=== PATIENT | male | born 1960 | race Two or more races ===

== ENCOUNTER 2020-04-09 13:28 | Emergency (ER) | payer OTHER ==
[~2020-04-09] VITALS: Ht 175.3 cm; Wt 81.8 kg
[2020-04-09] MEDS ORDERED: LOSA25TA21 PO (13:42)
[2020-04-09] MEDS ORDERED: ASPI-1111 PO (13:42)
[2020-04-09 13:43] VITALS: BP 133/86
[2020-04-09 15:54] LABS: COVID AG,FIA SOURCE NASOPHARYNGEAL
== END 2020-04-09 15:11 | disposition home or self-care (01) ==
LOC: EMS 14:01
DX: U07.1 COVID-19 (principal); I11.9 Hypertensive heart disease without heart failure; F17.210 Nicotine dependence, cigarettes, uncomplicated; Z88.8 Allergy status to other drugs, medicaments and biological substances
CPT/HCPCS: 87426; 99283; C9803

== ENCOUNTER 2020-09-29 08:16 | Observation (INO) | payer OTHER ==
[2020-09-27 11:53] LABS: COVID AG,FIA SOURCE NASOPHARYNGEAL
[2020-09-27 11:56] LABS: BASOPHILS % (AUTO) 0.3 % (0.0-2.0); EOSINOPHILS % (AUTO) 1.9 % (1.0-6.0); HEMATOCRIT 38.7 % (41-53); HEMOGLOBIN 12.9 g/dL (13.5-17.5); LYMPHOCYTES # (AUTO) 1.5 K/uL (1.0-4.8); LYMPHOCYTES % (AUTO) 20.3 % (22.0-44.0); MEAN CORPUSCULAR HEMOGLOBIN 29.7 pg (26.0-34.0); MEAN CORPUSCULAR HGB CONC 33.3 G/dL (31.0-37.0); MEAN CORPUSCULAR VOLUME 89 fL (80-100); MONOCYTES # (AUTO) 0.6 K/uL (0.1-1.0); MONOCYTES % (AUTO) 8.4 % (2.0-9.0); NEUTROPHILS # (AUTO) 5.1 K/uL (1.8-7.7); NEUTROPHILS % (AUTO) 69.1 % (40.0-70.0); PLATELET COUNT (AUTO) 261 K/uL (150-450); RED BLOOD CELL COUNT(AUTO) 4.34 MIL/uL (4.50-5.90); RED CELL DISTRIBUTION WIDTH 13.2 % (11.5-14.5)
[2020-09-27 12:04] LABS: CALCIUM, TOTAL 9.2 mg/dL (8.8-10.5); CREATININE 1.24 mg/dL (0.60-1.30)
[2020-09-27 12:11] LABS: ALBUMIN 4.3 g/dL (3.4-5.0); BILIRUBIN,TOTAL 0.7 mg/dL (0.1-1.0); TOTAL PROTEIN, SERUM 7.7 g/dL (6.4-8.2)
[~2020-09-29] VITALS: Ht 175.3 cm; Wt 81.4 kg
[~2020-09-29 08:16] MED LIST: ASPI-1444 PO; ATOR10TA84 PO; CHOL500013 PO; GING550C5 PO; LOSA25TA21 PO; MAGN200T4 PO; SODIUM CHLORIDE 0.9% 1,000 ML IV ONE
[2020-09-29] MEDS ORDERED: SODIUM CHLORIDE 0.9% 1,000 ML ONE (08:51)
[2020-09-29] MEDS ORDERED: SODIUM BICARBONATE 50 MEQ/50 ML VIAL ONE (09:14)
[2020-09-29] MEDS ORDERED: LIDOCAINE/PF 1% 30 ML VIAL ONE (09:14)
[2020-09-29] MEDS ORDERED: HEPARIN SODIUM 1000 UNITS/NS 1,000 ML ONE (09:14)
[2020-09-29] MEDS ORDERED: IOHEXOL 300 MG/ML 150 ML VIAL ONE (09:14)
[2020-09-29] MEDS ORDERED: IOHEXOL 300 MG/ML 100 ML VIAL ONE ×2 (09:17→11:33)
[2020-09-29] MEDS ORDERED: IOHEXOL 300 MG/ML 50 ML VIAL ONE ×4 (09:17→12:23)
[2020-09-29] MEDS ORDERED: VERAPAMIL HCL 2.5 MG/ML 2 ML VIAL ONE (10:33)
[2020-09-29] MEDS ORDERED: NITROGLYCERIN 50 MG/D5% WATER 250 ML ONE (10:34)
[2020-09-29 10:39] VITALS: BP 192/76
[2020-09-29] MEDS ORDERED: FentaNYL CITRATE PF 100 MCG/2 ML VIAL ONE ×2 (11:07→11:46)
[2020-09-29] MEDS ORDERED: MIDAZOLAM HCL 2 MG/2 ML VIAL ONE ×3 (11:07→12:16)
[2020-09-29] MEDS ORDERED: MIDAZOLAM HCL 2 MG/2 ML VIAL IVP ONE ×4 (11:30→12:30)
[2020-09-29] MEDS ORDERED: HEPARIN SODIUM 1000 UNITS/NS 1,000 ML IARTER ONE (11:30)
[2020-09-29] MEDS ORDERED: IOHEXOL 300 MG/ML 150 ML VIAL IARTER ONE (11:30)
[2020-09-29] MEDS ORDERED: LIDOCAINE 1% 30 ML/SOD BICARB 8.4% 4 ML SQ ONE (11:30)
[2020-09-29] MEDS ORDERED: FentaNYL CITRATE PF 100 MCG/2 ML VIAL IVP ONE ×4 (11:30→12:30)
[2020-09-29] MEDS ORDERED: IOHEXOL 300 MG/ML 50 ML VIAL IARTER ONE (11:30)
[2020-09-29] MEDS ORDERED: HEPARIN SODIUM,PORCINE 5,000 UNITS/ML VIAL IVP ONE ×2 (11:30)
[2020-09-29] MEDS ORDERED: NITROGLYCERIN/D5W 50 MG/250 ML IV BOTTLE IARTER ONE (11:45)
[2020-09-29] MEDS ORDERED: NITROGLYCERIN/D5W 50 MG/250 ML IV BOTTLE ICOR ONE ×3 (11:45→12:30)
[2020-09-29] MEDS ORDERED: VERAPAMIL HCL 2.5 MG/ML 2 ML VIAL ICOR ONE ×2 (11:45→12:30)
[2020-09-29] MEDS ORDERED: VERAPAMIL HCL 2.5 MG/ML 2 ML VIAL IARTER ONE (11:45)
[2020-09-29] MEDS ORDERED: SODIUM CHLORIDE 0.9% 500 ML IV ONE (12:00)
[2020-09-29] MEDS ORDERED: ASPIRIN 325 MG TABLET ONE (12:44)
[2020-09-29] MEDS ORDERED: CLOPIDOGREL BISULFATE 300 MG TABLET ONE (12:44)
[2020-09-29] MEDS ORDERED: SODIUM CHLORIDE 0.9% 1,000 ML IV ONE (12:45)
[2020-09-29] MEDS ORDERED: ACETAMINOPHEN 325 MG TABLET PO PRN (12:45)
[2020-09-29] MEDS ORDERED: ZOLPIDEM TARTRATE 10 MG TABLET PO PRN (12:45)
[2020-09-29] MEDS ORDERED: HYDROCODONE/ACETAMINOPHEN 5-325 MG TABLET PO PRN (12:45)
[2020-09-29] MEDS ORDERED: CLOPIDOGREL BISULFATE 300 MG TABLET PO ONE (13:30)
[2020-09-29 13:54] VITALS: BP 159/75
[2020-09-29 14:34] VITALS: BP 136/77
[2020-09-29 19:52] VITALS: BP 145/91
[2020-09-29 23:55] VITALS: BP 131/82
[2020-09-30 05:10] VITALS: BP 143/74
[2020-09-30 06:03] LABS: BASOPHILS % (AUTO) 0.2 % (0.0-2.0); EOSINOPHILS % (AUTO) 0.6 % (1.0-6.0); HEMATOCRIT 36.3 % (41-53); HEMOGLOBIN 12.3 g/dL (13.5-17.5); LYMPHOCYTES # (AUTO) 0.9 K/uL (1.0-4.8); LYMPHOCYTES % (AUTO) 7.7 % (22.0-44.0); MEAN CORPUSCULAR HEMOGLOBIN 30.1 pg (26.0-34.0); MEAN CORPUSCULAR VOLUME 88 fL (80-100); MONOCYTES # (AUTO) 0.7 K/uL (0.1-1.0); MONOCYTES % (AUTO) 6.3 % (2.0-9.0); NEUTROPHILS # (AUTO) 9.5 K/uL (1.8-7.7); PLATELET COUNT (AUTO) 207 K/uL (150-450); RED CELL DISTRIBUTION WIDTH 13.1 % (11.5-14.5)
[2020-09-30 06:10] LABS: NEUTROPHILS % (AUTO) 85.2 % (40.0-70.0)
[2020-09-30 06:42] LABS: ANION GAP 9 mmol/L (8-16); CALCIUM, TOTAL 8.9 mg/dL (8.8-10.5); CARBON DIOXIDE 25 mmol/L (22-29); CHLORIDE 101 mmol/L (98-107); CHOL/HDL RATIO 4.5 (4.2-7.3); CHOLESTEROL 127 mg/dL (131-200); CREATINE KINASE, TOTAL ONLY 163 U/L (39-308); CREATININE 1.18 mg/dL (0.60-1.30); GLOMERULAR FILTR. RATE CALC > 60 mL/min (>60); GLUCOSE,RANDOM 106 mg/dL (70-110); HDL CHOLESTEROL 28 mg/dL (40-60); LDL CHOL (CALC.) 80 mg/dL (0-130); POTASSIUM 3.6 mmol/L (3.5-5.1); SODIUM SERUM 135 mmol/L (136-145); TRIGLYCERIDES 97 mg/dL (15-150); UREA NITROGEN, BLOOD 12 mg/dL (7-18)
[2020-09-30 07:21] VITALS: BP 140/82
[2020-09-30] MEDS ORDERED: CLOPIDOGREL BISULFATE 75 MG TABLET PO ONE (09:00)
[2020-09-30] MEDS ORDERED: LOSARTAN POTASSIUM 50 MG TABLET PO SCH (09:00)
[2020-09-30] MEDS ORDERED: ASPIRIN 325 MG TABLET PO ONE (09:00)
[2020-09-30] MEDS ORDERED: ATORVASTATIN CALCIUM 10 MG TABLET PO ONE (09:00)
[2020-09-30] MEDS ORDERED: HYDROCHLOROTHIAZIDE 25 MG TABLET PO ONE (09:00)
[2020-09-30 11:36] VITALS: BP 140/78
[2020-09-30] MEDS ORDERED: ATOR40TA28 PO ×2 (11:53→11:56)
[2020-09-30] MEDS ORDERED: CLOP75TA60 PO (11:53)
[2020-09-30] MEDS ORDERED: LOSA50TA37 PO ×3 (11:54→11:59)
== END 2020-09-30 12:40 | disposition home or self-care (01) ==
LOC: CATHLAB 08:16 → 5S 08:17 → INTOOBSV 08:17
PROVIDERS: ADMIT Internal Medicine Cardiovascular Disease; ATTEND Internal Medicine Cardiovascular Disease
DX: I25.10 Atherosclerotic heart disease of native coronary artery without angina pectoris (principal); I49.3 Ventricular premature depolarization; Z20.822 Contact with and (suspected) exposure to COVID-19; I10 Essential (primary) hypertension; E78.5 Hyperlipidemia, unspecified; M19.90 Unspecified osteoarthritis, unspecified site; J44.9 Chronic obstructive pulmonary disease, unspecified; R91.1 Solitary pulmonary nodule; F17.200 Nicotine dependence, unspecified, uncomplicated
CPT/HCPCS: 36415 ×2; 80048; 80053; 80061; 82550; 85025 ×2; 85610; 85730; 87426; 92920; 92921; 92928; 92929; 93005 ×2; 93458; 96360; 96361; 99219 ×2; C1874; C1887; C9803; J1644 ×2; J2250; J3010; J3490 ×4; J7030; Q9967 ×3; Z7610

== ENCOUNTER 2021-05-17 14:56 | Emergency (ER) | payer BC, OTHER ==
[~2021-05-17] VITALS: Ht 175.3 cm; Wt 79.5 kg
[~2021-05-17 14:56] MED LIST changes: -ATOR10TA84 PO; +ATOR40TA28 PO; +CLOP75TA60 PO; +LOSA-382 PO; -LOSA25TA21 PO; -SODIUM CHLORIDE 0.9% 1,000 ML IV ONE
[2021-05-17 15:49] VITALS: BP 164/83
== END 2021-05-17 16:56 | disposition home or self-care (01) ==
LOC: EMS 15:10
DX: Z20.822 Contact with and (suspected) exposure to COVID-19 (principal); F17.210 Nicotine dependence, cigarettes, uncomplicated; I11.9 Hypertensive heart disease without heart failure
CPT/HCPCS: 99283; U0003